=== PATIENT | female | born 1960 | race Caucasian/White ===

== ENCOUNTER → 2021-08-08 | Outpatient (CLI) | payer OTHER ==
--- NOTE | 2021-08-08 08:19 | US ---
EXAMINATION TYPE: US abdomen complete DATE OF EXAM: 08/08/2021 COMPARISON: NONE CLINICAL HISTORY: R10.84 Generalized abdominal pain,R92.8 Abn Mammogram. EXAM MEASUREMENTS: Liver Length: 12.8 cm Gallbladder Wall: 0.2 cm CBD: 0.2 cm Spleen: 8.8 cm Right Kidney: 13.2 x 3.3 x 4.5 cm Left Kidney: 13.0 x 4.1 x 4.2 cm Pancreas: Tail obscured by overlying bowel gas Liver: Increased attenuation, decreased visualization of vessels Gallbladder: wnl Evidence for sonographic Parmar's sign: no CBD: wnl Spleen: wnl Right Kidney: scattered echogenic foci ? stones, measures large Left Kidney: very poor visualization due to overlying bowel gas, inferior pole obscured , measures large Upper IVC: wnl Abd Aorta: wnl The liver is homogenous. The intrahepatic portion of the IVC and proximal abdominal aorta are within normal limits. There is no evidence of cholelithiasis. Common bile duct is unremarkable. The visu alized portions of the pancreas are homogenous. The spleen is unremarkable. Kidneys are symmetric a nd free of hydronephrosis. No renal lesions are seen. IMPRESSION: Nonobstructing nephrolithiasis.
--- NOTE | 2021-08-09 10:57 | USB ---
Reason for exam: additional evaluation requested from prior study. History: Patient is postmenopausal. Took hormonal contraceptives for 16 years beginning at age 24. Physical Findings: Nurse Summary: all soft, nodular, movable (nurse ts). US Breast RT Prior study comparison: June 18, 2021, mammogram, performed at [facility]. March 30, 2020, mammogram, performed at [facility]. Right complete breast ultrasound includes all four quadrants, the retroareolar region and axilla. Finding demonstrates no cystic or solid lesion seen. Entire right breast scanned. Recommend spot compression of the lateral asymmetric density on right CC view. These results were verbally communicated with the patient and result sheet given to the patient on 08/08/21. ASSESSMENT: Incomplete: need additional imaging evaluation, BI-RAD 0 RECOMMENDATION: Special view mammogram of the right breast. (3D) If lesion persists on supplemental views, image directed ultrasound is recommended. [facility] will attempt to contact patient to return for supplemental views and ultrasound if indicated.
== END | disposition home or self-care (01) ==
LOC: RADUSWWP 07:21
PROVIDERS: ATTEND Family Medicine
DX: N20.0 Calculus of kidney (principal); R92.8 Other abnormal and inconclusive findings on diagnostic imaging of breast; Z78.0 Asymptomatic menopausal state
CPT/HCPCS: 76700

== ENCOUNTER → 2022-03-19 | Outpatient (CLI) | payer OTHER ==
--- NOTE | 2022-03-19 13:34 | MM ---
Reason for Exam: Follow-up at short interval from prior study. Last screening mammogram was performed 9 month(s) ago. Patient History: Menarche at age 13. First Full-Term at age 23. Postmenopausal. Hormonal Contraceptives for 16 years from age 24 until age 40. Risk Values: Hannah 5 year model risk: 1.4%. NCI Lifetime model risk: 6.2%. Prior Study Comparison: 04/26/2013 Bilateral Screening Mammogram, [facility]. 01/25/2015 Bilateral Screening Mammogram, [facility]. 05/05/2016 Bilateral Screening Mammogram, [facility]. 06/11/2017 Bilateral Screening Mammogram, [facility]. 03/30/2020 Screening Mammogram, [facility]. 06/18/2021 Screening Mammogram, [facility]. 08/08/2021 Right Diagnostic Ultrasound, [facility]. 08/13/2021 Right Diagnostic Mammogram, [facility]. Tissue Density: Right: The breast tissue is heterogeneously dense. This may lower the sensitivity of mammography. Findings: Analyzed By CAD. No suspicious spiculated or lobular masses clustering of microcalcifications or architectural distortion is evident. Parenchymal pattern appears stable. Overall Assessment: Benign, BI-RAD 2 Management: Screening Mammogram of both breasts in 1 year. A clinical breast exam by your physician is recommended on an annual basis and results should be correlated with mammographic findings. This exam should not preclude additional follow-up of suspicious palpable abnormalities. Results were given to the patient verbally at the time of exam. Electronically signed and approved by: Nash Braun D.O. Radiologis
== END | disposition home or self-care (01) ==
LOC: RADMAMWWP 12:44
PROVIDERS: ATTEND Family Medicine
DX: R92.8 Other abnormal and inconclusive findings on diagnostic imaging of breast (principal); Z78.0 Asymptomatic menopausal state
CPT/HCPCS: 77061; 77065

== ENCOUNTER → 2023-04-22 | Outpatient (CLI) | payer OTHER ==
--- NOTE | 2023-04-22 22:41 | MR ---
EXAMINATION TYPE: MR lumbar spine wo con DATE OF EXAM: 04/22/2023 COMPARISON: 10/18/2015 HISTORY: Lower back pain, LLE radiculopathy x 2 mos, no trauma. CONTRAST: 0 mL intravenous Gadavist. TECHNIQUE: Multiplanar, multisequence images of the lumbar spine were acquired. FINDINGS: Cord terminates at the L1 level. L5-S1: No significant disc bulge or disc herniation. No spinal canal stenosis. No foraminal stenosi s. L4-L5: No significant disc bulge or disc herniation. No spinal canal stenosis. Facet hypertrophy is present. Neural foramen are patent. L3-L4: Disc desiccation is present. No focal disc herniation is evident. Mild facet hypertrophy is pr esent with mild posterior lateral thecal sac impression from ligamentum flavum laxity. Neural foramen are patent. L2-L3: Broad-based disc bulge is present with mild anterior thecal sac compression. No AP spinal citlali l stenosis present. Facet hypertrophy is present greater on the left. Neural foramen are patent. L1-L2: Broad-based disc bulges anterior thecal sac flattening. Mild facet hypertrophy is present. No spinal canal stenosis or neural foraminal stenosis is present. T12-L1: No significant disc bulge or disc herniation. No spinal canal stenosis. No foraminal stenos is. No significant interval change is evident. IMPRESSION: 1.
== END | disposition home or self-care (01) ==
LOC: RADMRIMAIN 11:07
PROVIDERS: ATTEND Student in an Organized Health Care Education/Training Program
DX: M51.16 Intervertebral disc disorders with radiculopathy, lumbar region (principal)
CPT/HCPCS: 72148

== ENCOUNTER 2023-05-15 08:44 | Day surgery (SDC) | payer OTHER ==
[~2023-05-15 08:44] MED LIST: LACTATED RINGERS 1,000 ML IV SCH; LIDOCAINE 1% (10MG/ML) FOR IV START INTRADERMA PRN
[2023-05-15 09:31] VITALS: TEMP 97.9
[2023-05-15] MEDS ORDERED: PROPOFOL 10 MG/ML 20 ML VIAL IV ONE (10:09)
[2023-05-15] MEDS ORDERED: LIDOCAINE 1% INJ 10MG/ML (20 ML MDV) ONE (10:09)
--- NOTE | 2023-05-15 10:29 | P.PCN ---
Date of Procedure: 05/15/23 Procedure(s) Performed: BRIEF HISTORY: Patient is a 63-year-old pleasant white female scheduled for an elective colonoscopy as a part of screening for colon cancer. PROCEDURE PERFORMED: Colonoscopy. PREOPERATIVE DIAGNOSIS: Screening for colon cancer. IV sedation per Anesthesia. PROCEDURE: After informed consent was obtained, the patient, was brought into the endoscopy unit. IV sedation was administered by Anesthesia under continuous monitoring. Digital rectal examination was normal. Initially the Olympus CF-160 flexible video colonoscope was then inserted in the rectum, gradually advanced into the cecum without any difficulty. Careful examination was performed as the scope was gradually being withdrawn. Ileocecal valve and the appendiceal orifice were visualized and appeared normal. Prep was excellent. Mucosa of the cecum, ascending colon, transverse colon, descending colon, sigmoid colon, and rectum appeared normal. Retroflexion was performed in the rectum and small internal hemorrhoids were seen. The patient tolerated the procedure well. IMPRESSION: Normal-appearing colon from rectum to cecum with no evidence of colorectal neoplasia . Small internal hemorrhoids. RECOMMENDATIONS: Findings of this examination were discussed with the patient as well as her family. She was advised to be a high-fiber diet, take fiber supplements a regular basis and use osmotic laxatives as needed. Recommend repeat screening colonoscopy in 10 years..
[2023-05-15 11:11] VITALS: BP 130/63; PULSE 83; RESP 16
== END 2023-05-15 11:06 | disposition home or self-care (01) ==
LOC: ORWHC2ENDO 08:44
PROVIDERS: ATTEND Internal Medicine Gastroenterology
DX: Z12.11 Encounter for screening for malignant neoplasm of colon (principal); K64.8 Other hemorrhoids; Z88.6 Allergy status to analgesic agent; Z88.8 Allergy status to other drugs, medicaments and biological substances; Z88.0 Allergy status to penicillin; Z79.899 Other long term (current) drug therapy
CPT/HCPCS: 45378; J2001; J2704

== ENCOUNTER → 2023-05-19 | Outpatient (CLI) | payer OTHER ==
--- NOTE | 2023-05-19 12:27 | US ---
EXAMINATION TYPE: US abdomen limited DATE OF EXAM: 05/19/2023 COMPARISON: NONE CLINICAL INDICATION: Female, 63 years old with history of M25.552, R10.9 UNSPECIFIED ABDOMINAL PAIN; Left hip/flank palpable that has increased in size per patient. TECHNIQUE: Multiple sonographic images taken of patients area of concern. FINDINGS/IMPRESSION: At patients area of concern, prominent nonvascular area seen = 5.1 x 5.4 x 2.3 cm. This blends in with the surrounding tissue. Demonstrates ill-defined margins. No fluid collecti on identified. This may represent a lipoma versus other etiologies. Consider further evaluation with CT left hip with IV contrast.
== END | disposition home or self-care (01) ==
LOC: RADUSWWP 11:38
PROVIDERS: ATTEND Student in an Organized Health Care Education/Training Program
DX: M25.552 Pain in left hip (principal); R10.9 Unspecified abdominal pain
CPT/HCPCS: 76705

== ENCOUNTER → 2023-05-27 | Outpatient (CLI) | payer OTHER ==
--- NOTE | 2023-05-30 21:40 | MR ---
EXAMINATION TYPE: MR pelvis wo con DATE OF EXAM: 05/27/2023 10:10 AM CLINICAL INDICATION:Female, 63 years old with history of M16.12 UNILATERAL PRIM OSTEOARTHRITIS, LEFT HIP M25.552; PHH, Pelvic and left hip pain. COMPARISON: None TECHNIQUE: Triplane multisequence imaging was performed of the pelvis. IV Contrast: None FINDINGS: Reproductive: Vagina: Unremarkable. Uterus: The uterus is anteverted in position. The endometrium and junctional zone are within normal l imits. Possible submucosal fibroid measuring 8 mm. Ovaries: The ovaries are not definitively visualized may be atrophic or surgically absent. Bladder: Unremarkable. Bowel: Unremarkable as visualized. Peritoneum: A small amount of free fluid in the pelvis. Lymph nodes: No evidence of adenopathy. Vasculature: Unremarkable. Musculoskeletal: There is high T2 signal within the proximal left femur including the left femoral he ad. There is curvilinear low signal line extending through the subchondral portion of the femoral hea d. There is a small moderate left hip effusion. The acetabulum appears intact. There is somewhat rodolfo apsed femoral head. Abdominal wall/soft tissues: Unremarkable. IMPRESSION: 1. Findings compatible with subacute subchondral fracture of the superior aspect of the left femoral head with subchondral collapse. There is associated left femur bony edema and left small moderate anneliese int effusion. 2. Possible submucosal fibroid measuring 8 mm.
== END | disposition home or self-care (01) ==
LOC: RADMRIMAIN 09:02
PROVIDERS: ATTEND Orthopaedic Surgery
DX: M16.12 Unilateral primary osteoarthritis, left hip (principal); M25.452 Effusion, left hip
CPT/HCPCS: 72195

== ENCOUNTER → 2023-06-02 | Outpatient (CLI) | payer OTHER ==
--- NOTE | 2023-06-02 10:01 | CT ---
EXAMINATION TYPE: CT hip LT w con CT DLP: 439 mGycm, Automated exposure control for dose reduction was used. DATE OF EXAM: 06/02/2023 9:42 AM COMPARISON: MRI pelvis 05/27/2023 CLINICAL INDICATION:Female, 63 years old with history of left hip mass M25.852; MERGED WITH [facility], TECHNIQUE: Axial images were obtained of the CT hip LT w con, Additional coronal and sagittal reforma tted images and soft tissue and bone window were obtained for review. 3-D reconstruction was created on a separate workstation. Contrast used: 100 cc Isovue-300. (None if empty) Oral contrast used: (None if empty) FINDINGS: Subchondral fracture of the left femoral head similar to MRI 05/27/2023 with step-off of th e femoral head of 1 to 2 mm. There is some surrounding sclerosis at the fracture margins. No evidence for dislocation. There is a small to moderate joint effusion. IMPRESSION: There is subchondral fracture of the left femoral head with deformity to the contour of the femoral h ead small step-off. Findings similar to MRI findings from 05/27/2023. Associated small to moderate anneliese int effusion.
== END | disposition home or self-care (01) ==
LOC: RADCTMAIN 09:03
PROVIDERS: ATTEND Student in an Organized Health Care Education/Training Program
DX: S72.051A Unspecified fracture of head of right femur, initial encounter for closed fracture (principal); M25.852 Other specified joint disorders, left hip; M25.452 Effusion, left hip
CPT/HCPCS: 73701; Q9967

== ENCOUNTER → 2023-06-10 | Outpatient (CLI) | payer OTHER ==
[2023-06-10 10:34] LABS: INR 0.9 (<1.2); Partial Thromboplastin Time 24.9 sec (22.0-30.0); Prothrombin Time 10.2 sec (10.0-12.5)
[2023-06-10 16:19] LABS: ALT 12 U/L (8-44); AST 14 U/L (13-35); Albumin 4.6 d/dL (3.8-4.9); Albumin/Globulin Ratio 1.92 Ratio (1.60-3.17); Alkaline Phosphatase 91 U/L (41-126); Appearance,Urine Clear (Clear); BUN/Creat Ratio 17.12 Ratio (12.00-20.00); Bilirubin,Urine Negative (Negative); Blood Urea Nitrogen 13.7 mg/dL (9.0-27.0); Blood,Urine Negative (Negative); Calcium 10.6 mg/dL (8.7-10.3); Carbon Dioxide 26.5 mmol/L (21.6-31.8); Chloride 98 mmol/L (96-109); Color,Urine Yellow (Yellow); Globulin 2.4 d/dL (1.6-3.3); Glucose 104 mg/dL (70-110); Ketones,Urine Negative (Negative); Nitrite,Urine Negative (Negative); Sodium 138 mmol/L (135-145); Specific Gravity,Urine 1.005 (1.001-1.030); Total Bilirubin 1.6 mg/dL (0.3-1.2); Urobilinogen,Urine 0.2 E.U./DL
[2023-06-10 16:21] LABS: HGB 13.7 d/dL (12.0-15.0); MCH 28.2 pg (27.0-32.0); MCHC 32.6 d/dL (32.0-37.0); MCV 86.6 FL (80.0-97.0); Mean Platelet Volume 11.6 FL (9.5-12.2); NRBC Per 100 WBC 0 X 10*3/uL (0.00-0.01); Platelet Count 264 X 10*3/uL (140-440); RBC 4.85 X 10*6/uL (4.10-5.20); RDW 12.7 % (11.5-14.5); WBC 7.29 X 10*3/uL (4.50-10.00)
== END | disposition home or self-care (01) ==
LOC: LABPAT 09:44
PROVIDERS: ATTEND Orthopaedic Surgery
DX: Z01.818 Encounter for other preprocedural examination (principal); M16.12 Unilateral primary osteoarthritis, left hip; S72.092D Other fracture of head and neck of left femur, subsequent encounter for closed fracture with routine healing
CPT/HCPCS: 80053; 81003; 85027; 85610; 85730; 86850; 86900; 86901; 87070

== ENCOUNTER 2023-06-17 07:57 | Day surgery (SDC) | payer OTHER ==
[2023-06-12 09:06] VITALS: BMI 29.2
[~2023-06-17 07:57] MED LIST changes: +ACETAMINOPHEN TAB 500 MG TAB PO PRN; +DEXAMETHASONE SOD PHOSPHATE 10 MG/ML 1 ML VIAL IV PRN; +DOCUSATE 100 MG CAP PO PRN; +FAMOTIDINE 20 MG/2 ML VIAL IVP PRN; +KETOROLAC 15 MG/ML 1 ML VIAL IVP PRN; -LACTATED RINGERS 1,000 ML IV SCH; +ONDANSETRON 4 MG/2 ML VIAL IVP ONE; +ONDANSETRON 4 MG/2 ML VIAL IVP PRN; +ROPIVACAINE/EPI/CLONIDINE/KET 50 ML SYRINGE MISCELLANE PRN; +TRANEXAMIC 1,000 MG/100ML-NACL 1,000 MG in SALINE 1 100ML.BAG IV PRN; +TRANEXAMIC 1,000 MG/100ML-NACL 1,000 MG in SALINE 1 100ML.BAG IVPB PRN; +droPERidol 5 MG/2 ML VIAL IVP ONE; +oxyCODONE ER 10 MG TAB.ER.12H PO PRN
[2023-06-17] MEDS: LACTATED RINGERS 1,000 ML IV SCH (08:22)
[2023-06-17] MEDS ORDERED: MIDAZOLAM 2 MG/2 ML VIAL IVP ONE (09:18)
[2023-06-17] MEDS ORDERED: PHENYLEPHRINE 10 MG/ML 5 ML VIAL ONE (09:30)
[2023-06-17] MEDS ORDERED: TRANEXAMIC 1,000 MG/100ML-NACL PREMIX BAG ONE (09:30)
[2023-06-17] MEDS ORDERED: NEOSTIGMINE 1 MG/ML 10 ML VIAL ONE (09:30)
[2023-06-17] MEDS ORDERED: fentaNYL (PF) 50 MCG/ML 2 ML AMP ONE (09:30)
[2023-06-17] MEDS ORDERED: PROPOFOL 10 MG/ML 20 ML VIAL IV ONE (09:30)
[2023-06-17] MEDS ORDERED: SUCCINYLCHOLINE CHLORIDE 200 MG/10 ML VIAL IV ONE (09:30)
[2023-06-17] MEDS ORDERED: ROPIVACAINE 5 MG/ML 30 ML VIAL ONE (09:30)
[2023-06-17] MEDS ORDERED: ROCURONIUM 10 MG/ML (5 ML VIAL) IV ONE (09:30)
[2023-06-17] MEDS ORDERED: GLYCOPYRROLATE 0.2 MG/ML 2 ML VIAL ONE (09:30)
[2023-06-17] MEDS ORDERED: DEXAMETHASONE SOD PHOSPHATE 4 MG/ML 1 ML VIAL ONE (09:30)
[2023-06-17] MEDS ORDERED: LACTATED RINGERS 1,000 ML IV ONE ×2 (10:15)
--- NOTE | 2023-06-17 11:46 | FL ---
EXAMINATION TYPE: FL guidance operating room, XR Hip Limited LT DATE OF EXAM: 06/17/2023 Comparison: None Clinical History: 63-year-old female Left Hip-Ant Findings: total ant hip in or left fl time 46 secs. DAP 2.0781 mGycm2 Total images 7 IMPRESSION: Intraoperative fluoroscopy as above.
[2023-06-17] MEDS ORDERED: NALOXONE 0.4 MG/ML 1 ML VIAL IV PRN (11:59)
[2023-06-17] MEDS ORDERED: HYDROcodone/APAP 5-325MG 1 EACH TAB PO PRN (11:59)
[2023-06-17] MEDS ORDERED: diazePAM 5 MG TAB PO PRN (11:59)
[2023-06-17] MEDS ORDERED: HYDROmorphone 1 MG/ML 1 ML SYRINGE IVP PRN (11:59)
[2023-06-17] MEDS ORDERED: MAGNESIUM HYDROXIDE 2,400 MG/30 ML CUP PO PRN (11:59)
[2023-06-17] MEDS ORDERED: hydrOXYzine pamoate 25 MG CAP PO PRN (11:59)
--- NOTE | 2023-06-17 11:59 | P.OP ---
Date of Procedure: 06/17/23 Preoperative Diagnosis: Left subchondral femoral head fracture with collapse versus avascular necrosis Postoperative Diagnosis: Same Procedure(s) Performed: Left direct anterior total hip arthroplasty Implants: 1. Emigdio Trident II Acetabular Cup, Size #48 2. Leona Insignia Size # 4 Femoral Stem, StandardOffset 3.Dual Mobility OD 38 mm, ID [id number], +0 mm, neck Anesthesia: GETA, regional Surgeon: Bhavik Pro Estimated Blood Loss (ml): 300 IV fluids (ml): 1,000 Pathology: none sent Condition: stable Disposition: PACU Indications for Procedure: The patient is a very pleasant previously healthy 63-year-old female that has had left hip pain which he attributes to twisting her hip this summer while gardening. She was worked up extensively both by myself and a spine physician. Workup included x-rays, computed tomography scan, and an MRI. Her imaging showed a subchondral fracture and collapse of the left femoral head. She had ongoing pain and difficulty ambulating and my recommendation was to proceed with a total hip replacement given her age and severity of the subchondral fracture and collapse. I had a long discussion with the patient in the office on the potential risks and complications of an elective total hip replacement through a direct anterior approach. Risks discussed include, but are certainly not limited to, risks from anesthesia, superficial infection requiring local wound care or antibiotics, deep juani-prosthetic joint infection and the treatment required to eradicate infection, intraoperative fracture, postoperative periprosthetic fracture, damage to local blood vessels or nerves particularly the lateral femoral cutaneous nerve, delayed wound healing requiring local wound care or possibly surgical debridement, hip dislocation, leg length discrepancy, soft tissue irritation around the total hip implant such as iliopsoas tendinitis or trochanteric bursitis, wear and osteolysis from the implants, squeaking or audible noises, groin pain, thigh pain, heterotopic ossification, stiffness, aseptic loosening of the implants, dissatisfaction with surgical outcome, need for revision surgery, DVT, PE, swelling of the operative extremity, acute coronary event, stroke, failure to thrive, and possibly loss of life or limb. The patient understands that while these are the most common complications after an elective hip replacement there are certainly other less common complications possible. They were given ample time to ask questions regarding the potential complications of a hip replacement. Following our discussion the patient provided their verbal and written consent to go forward with an elective total hip replacement. Operative Findings: There is a subchondral femoral head fracture involving the superior weightbearing portion the femoral head with complete delamination and separation of 25% of the articular cartilage on the weightbearing surface. There was also a large clear effusion. Description of Procedure: The patient was identified in the preoperative holding area and the correct hip was marked with my initials. I reviewed the procedure and consent with the patient. All of their questions were answered. The patient was then brought back into the operating room by anesthesia. While on the [facility] anesthesia was administered by the anesthesia team. Preoperative antibiotics and tranexamic acid were also given. After the patient was under anesthesia I examined their ankles to determine their preoperative leg length discrepancy. The skin over the anterior aspect of the hip was shaved to remove hair over the site of planned incision. Both feet and ankles were padded with webril and boots for the Holcomb were applied. The patient was then carefully transferred onto the Holcomb table. A perineal post was immediately placed. The arms were placed on arm holders and were well-padded. Both boots were secured to the spars on the Holcomb table. The patient was positioned so that the pelvis was centered over the post. Nonsterile drapes were applied. A timeout was performed identifying the correct patient, operative extremity, and procedure. At this point fluoroscopy was brought in to take preoperative images of the pelvis and operative hip. Using the standing AP pelvis from the office as a template, a comparable image was obtained with fluoroscopy. A metallic bar was used to create a bi-ischial line for use as a reference to leg length adjustments during the procedure. Global offset was also measured on both the operative and nonoperative leg. Fluoroscopy was then brought out and a pre-scrub using a chlorhexidine scrub brush was performed. The operative limb was then prepped and draped in the standard sterile fashion. An anterior longitudinal incision was made lateral and distal to the ASIS. The skin and subcutaneous tissues were incised sharply. The underlying tensor fascia was identified and incised in its midportion. The fascia was dissected free from the underlying muscle and the muscle belly was retracted. A blunt tipped cobra retractor was placed over the superior neck under the muscle fibers of the gluteus minimus. The deep enveloping fascia of the tensor was incised. The anterior leash of vessels were then identified and cauterized. The fascia between the rectus and the capsule was then incised and the pre-capsular fat was excised. A second Cobra was placed inferior to the neck. The interval between the rectus and iliocapsularis and the hip capsule was developed and a retractor was placed carefully over the anterior rim of the acetabulum. A T-shaped anterior capsulotomy was performed. The superior capsular leaflet was left in place in the inferior capsular flap was excised. The Cobra retractors were placed intracapsularly. We then made a femoral neck osteotomy according to preoperative and intraoperative templating and confirmed the level of the osteotomy using fluoroscopic imaging. The femoral head was removed, passed off to the back table, and sized. The superior capsular flap was excised. Retractors were placed circumferentially exposing the acetabulum. We then circumferentially debrided the acetabulum free of labrum and osteophytes. The pulvinar was removed to fully visualize the cotyloid fossa. We then sequentially reamed to achieve peripheral fit and excellent bleeding subchondral bone. The socket was thoroughly irrigated. The acetabular component was impacted into the appropriate position using fluoroscopy to guide version, inclination, and depth of insertion taking care to have a comparable image of the AP pelvis to the standing image taken in the office. An excellent press-fit was achieved and final position was confirmed using fluoroscopy. The press fit was augmented with bony cancellus dome screws. The liner was then impacted into the socket. Attention was then turned to the femur. The remnant dorsal lateral capsule was excised. The short external rotators were visible and protected. A bone hook was used to confirm appropriate translation of the trochanter away from the acetabulum. The leg was then extended and adducted and the bone hook was used to elevate the femur for broaching. A box osteotome and blunt tipped canal sound was then utilized to gain access to the femoral canal. We then sequentially broached the femur in appropriate anteversion until excellent torsional stability was achieved. The neck cut was brought flush to the trial broach with a calcar planar. A trial neck and head were then placed onto the broach and the hip was atraumatically reduced under direct visualization. External rotation to 90 was performed to assess stability. Fluoroscopy was brought in. An AP and lateral fluoroscopic image of the proximal femur was obtained to assess position and fill of the trial broach. An AP of the pelvis was then obtained and matched to the preoperative image taken. A bi-ischial bar was then placed and measurements were taken to assess changes in length and offset. The hip was then carefully dislocated, the proximal femur was exposed, and the trial implants were removed. The wound and proximal femur was thoroughly irrigated using sterile saline and pulsatile lavage. The final femoral implant was dispensed and gently tapped into place generating an excellent press-fit. The trunnion was cleansed and the final head was tapped into place to engage the Quarles taper. The acetabulum was irrigated and visualized to be free of debris. The hip was carefully reduced. Stability was checked clinically with external rotation to 90 and there was no evidence of instability. Final fluoroscopic images were taken. The wound was then thoroughly irrigated and soaked with a dilute Betadine rinse for 3 minutes. 3 L of sterile saline was irrigated through the wound using pulsatile lavage. Local anesthetic cocktail was injected into the soft tissues around the surgical field. A deep drain was placed. The wound was then closed in layers. A sterile dressing was placed over the surgical incision and drain site. The drapes were taken down and the patient was carefully transferred off of the Holcomb table. Following removal of the boots the leg lengths felt acceptable. The patient was then taken to recovery room having tolerated the procedure well. . PLAN: The patient can weight-bear as tolerated on the operative extremity. 2 doses of postoperative antibiotics. DVT prophylaxis with aspirin 81 mg twice a day based on preoperative risk stratification. Physical therapy for gait training. Discontinue drain postoperative day #1 if output is less than 100 mL per shift.
[2023-06-17] MEDS: HYDROmorphone 0.5 MG/0.5 ML SYRINGE IVP PRN ×2 (12:10→12:28)
[2023-06-17] MEDS: SODIUM CHLORIDE 0.9% 1,000 ML IV SCH ×2 (16:14→23:57)
--- NOTE | 2023-06-17 19:24 | P.CONS ---
History of Present Illness - Reason for Consult Consult date: 06/17/23 Medical Management Requesting physician: Bhavik Pro - History of Present Illness History of Presenting Illness: Patient is a very pleasant 63-year-old female with a past medical history of osteoarthritis, anxiety, and depression. She is currently admitted under orthopedic surgery team and is status post a left total hip arthroplasty secondary to avascular necrosis with collapse of her femoral head. Surgical procedure was completed by Dr. Pro earlier today. Review of systems: Pertinent positives and negatives as discussed in HPI, a complete review of sys tems was performed and all other systems are negative. Physical exam: Vital signs reviewed and stable. General: Nontoxic, no distress and appears stated age. Derm: Skin warm and dry, normal coloration for ethnicity. Head: Atraumatic, normocephalic and symmetric. Eyes: EOMs intact, no lid lag, and anicteric sclera Mouth: no lip lesions, mucus membranes moist Cardiovascular: regular rate and rhythm with normal S1S2, no murmur, positive posterior tibial pulses bilaterally, and cap refill < 2 seconds. Lungs: Respirations even, regular, and unlabored on room air. Lungs CTA bilaterally, no rhonchi, no rales, no wheezing, and no accessory muscle usage. Abdominal: soft, nontender to palpation, no guarding, no appreciable organomegaly Ext: ROM intact. No gross muscle atrophy, no edema, no contractures Neuro: Speech clear, face symmetrical and CN II-XII grossly intact with no noted focal neuro deficits Psych: Alert and oriented to person, place, time, and situation. Appropriate and pleasant affect. Assessment and Plan of Care: Postoperative hypoxia -Likely secondary to anesthesia. Patient's SpO2 90% on room air. -Order placed for administration of oxygenation to be titrated to maintain SpO2 equal to or greater than 92%. -Order placed on incentive spirometry and encourage use 10-15 times hourly while awake. Avascular necrosis with collapse of femoral head Status post left total hip arthroplasty -Management per primary admitting orthopedic surgery team including DVT prophylaxis, wound/dressing/drain management, weightbearing, PT/OT and pain management. -DVT prophylaxis currently with aspirin 81 mg twice daily. Anxiety and depression Order placed for hydroxyzine 25 mg every 4 hours as needed for anxiety Data reviewed: Vital signs reviewed. Blood pressure 106/85, heart rate 83, respiratory rate 17, temp 97.7F, and SpO2 of 90% on room air. Thank you for allowing us to participate in the care of this pleasant patient. Do not hesitate to contact us with questions. Someone can be reached from the [facility] hospitalist group all hours of the day at [phone] or via [employer]. Patient was seen independently by Nurse Practitioner. This document was prepared using DocVue dictation software. Please allow for errors in rooming house operator while rare they do occur. Past Medical History Past Medical History: Osteoarthritis (OA) Additional Past Medical History / Comment(s): constipation-high fiber diet, pain left hip History of Any Multi-Drug Resistant Organisms: None Reported Past Surgical History: Orthopedic Surgery, Tubal Ligation Additional Past Surgical History / Comment(s): Right foot surgery., left torn meniscus repair., colonoscopy Past Anesthesia/Blood Transfusion Reactions: No Reported Reaction Past Psychological History: Anxiety, Bipolar, Depression Additional Psychological History / Comment(s): pt states no problems now Smoking Status: Former smoker Past Alcohol Use History: None Reported Additional Past Alcohol Use History / Comment(s): quit smoking in her 20's., smoked 2 packs/week Past Drug Use History: None Reported - Past Family History Father Family Medical History: Coronary Artery Disease (CAD) Additional Family Medical History / Comment(s): pacemaker, Mother Family Medical History: Hypertension, Osteoarthritis (OA) Additional Family Medical History / Comment(s): Brother(s) Family Medical History: Cancer Additional Family Medical History / Comment(s): prostate cancer. Sister(s) Family Medical History: No Reported History Additional Family Medical History / Comment(s): . Son(s) Family Medical History: No Reported History Additional Family Medical History / Comment(s): She has a 30-year-old son and a 19-year-old son with no major medical problems. Daughter(s) Family Medical History: No Reported History Additional Family Medical History / Comment(s): She has one 17-year-old daughter with no major medical problems. Medications and Allergies Home Medications Medication Instructions Recorded Confirmed Type No Known Home Medications 06/12/23 06/17/23 History Allergies Allergy/AdvReac Type Severity Reaction Status Date / Time aspirin Allergy Rash/Hives Verified 06/17/23 08:22 corn Allergy congestion Verified 06/17/23 08:22 latex Allergy Dyspnea, Verified 06/17/23 08:22 itching Milk Containing Products Allergy congestion Verified 06/17/23 08:22 (Dairy) [Dairy] Penicillins Allergy Rash/Hives Verified 06/17/23 08:22 propoxyphene napsylate Allergy Rash/Hives Verified 06/17/23 08:22 [From Darvocet-N] risperidone Allergy Unknown Verified 06/17/23 08:22 Sulfa (Sulfonamide Allergy Unknown Verified 06/17/23 08:22 Antibiotics) docusate AdvReac Unknown abd pain Verified 06/17/23 08:22 Physical Exam Vitals: Vital Signs Temp Pulse Pulse Resp BP Pulse Ox 06/17/23 13:15 77 16 107/57 97 06/17/23 13:00 78 16 105/50 100 06/17/23 12:45 79 16 100/51 100 06/17/23 12:30 77 16 105/53 100 06/17/23 12:15 76 16 109/56 100 06/17/23 12:02 83 16 120/59 96 06/17/23 11:44 97 F L 105 H 16 139/55 96 06/17/23 09:27 76 18 104/58 98 06/17/23 08:30 98.3 F 84 18 112/68 98 Intake and Output 06/16/23 06/17/23 06/17/23 22:59 06:59 14:59 Intake Total 1250 Output Total 300 Balance 950 Intake: IV 1250 Output: Estimated Blood Loss 300 Other: Weight 75.1 kg
[2023-06-17] MEDS: HYDROcodone/APAP 10-325MG 1 EACH TAB PO PRN (19:47)
[2023-06-17] MEDS: ASPIRIN 81 MG PO SCH (20:43)
[2023-06-17] MEDS ORDERED: SENNOSIDES-DOCUSATE SODIUM 1 EACH TAB PO SCH (21:00)
[2023-06-18] MEDS: HYDROcodone/APAP 10-325MG 1 EACH TAB PO PRN ×3 (01:05→12:50)
[2023-06-18 03:18] VITALS: PULSE 66; RESP 17
[2023-06-18] MEDS: LACTATED RINGERS 1,000 ML IV SCH (05:58)
[2023-06-18 07:32] VITALS: BP 107/76; TEMP 97.8
[2023-06-18] MEDS: SODIUM CHLORIDE 0.9% 1,000 ML IV SCH (07:41)
[2023-06-18] MEDS: ASPIRIN 81 MG PO SCH (07:44)
--- NOTE | 2023-06-18 08:10 | P.DS ---
Providers Date of admission: 06/17/2023 Attending physician: Bhavik Pro Consults: 06/17/23 11:59 Consult Physician Routine Consulting Provider: Klarissa Dixon Consult Reason/Comments: post op medical management Do you want consulting provider notified?: Yes Primary care physician: Stephani Horne MD Hospital Course: The patient is very pleasant 63-year-old female who had a subchondral femoral head fracture. She was admitted under my care and underwent an uncomplicated total hip replacement. Lungs surgery she was transferred to the surgical floor. She did well postoperatively. She was transitioned from IV to oral pain medications. She received 2 doses of postoperative antibiotics. She worked with physical therapy. She was seen and evaluated by internal medicine. She di d well and was cleared for discharge home on postoperative day #1. Plan - Discharge Summary Discharge Rx Participant: Yes New Discharge Prescriptions: New HYDROcodone/APAP 5-325MG [[place] 5-325] 1 - 2 tab PO Q6HR PRN #32 tab PRN Reason: Pain Docusate [Colace] 100 mg PO BID #60 capsule Diclofenac Sodium [Voltaren] 75 mg PO BID #60 tab Aspirin 81 mg PO BID #60 tab Omeprazole 40 mg PO DAILY #30 cap Discharge Medication List Aspirin 81 mg PO BID #60 tab 06/18/23 [Rx] Diclofenac Sodium [Voltaren] 75 mg PO BID #60 tab 06/18/23 [Rx] Docusate [Colace] 100 mg PO BID #60 capsule 06/18/23 [Rx] HYDROcodone/APAP 5-325MG [[place] 5-325] 1 - 2 tab PO Q6HR PRN #32 tab 06/18/23 [Rx] Omeprazole 40 mg PO DAILY #30 cap 06/18/23 [Rx] Follow up Appointment(s)/Referral(s): Bhavik Pro MD [Medical Doctor] - 2 Weeks Activity/Diet/Wound Care/Special Instructions: 1. Weight-bear as tolerated on your operative extremity unless instructed otherwise. Use a walker or other assistive device to ambulate. 2. Leave surgical dressing in place. If your dressing becomes saturated with blood, there is drainage, or the dressing becomes loose please contact the office. 3. It is okay to shower with your surgical dressing, but do not submerge in w ater (no hot tubs, bath's, swimming etc.) 4. Make sure to take her blood clot prevention medication as prescribed (aspirin, Eliquis, Xarelto, and Plavix are commonly prescribed medications for blood clot prevention) 5. While taking [place] or Percocet for pain make sure you're taking a stool softener (Colace) and drink lots of water. 6. Keep all follow-up appointments as scheduled. You will usually be seen in 1-2 weeks following surgery. 7. Please contact the office with any questions or concerns [phone] Discharge Disposition: HOME SELF-CARE
[2023-06-18] MEDS ORDERED: FAMOTIDINE 20 MG TAB PO SCH (09:00)
[2023-06-18 11:51] LABS: Basophils # (A) 0.02 X 10*3/uL (0.00-0.10); Basophils % (A) 0.2 %; Eosinophils # (A) 0.01 X 10*3/uL (0.04-0.35); Eosinophils % (A) 0.1 %; HCT 34.2 % (37.2-46.3); HGB 10.9 g/dL (12.0-15.0); Lymphocytes % (A) 11.8 %; MCH 28.1 pg (27.0-32.0); MCHC 31.9 g/dL (32.0-37.0); MCV 88.1 FL (80.0-97.0); Mean Platelet Volume 11.8 FL (9.5-12.2); Monocytes # (A) 0.73 X 10*3/uL (0.20-1.00); Monocytes % (A) 6.2 %; NRBC Per 100 WBC 0 X 10*3/uL (0.00-0.01); Neutrophils # (A) 9.65 X 10*3/uL (1.80-7.70); Neutrophils % (A) 81.3 %; Platelet Count 230 X 10*3/uL (140-440); RBC 3.88 X 10*6/uL (4.10-5.20); RDW 12.8 % (11.5-14.5); WBC 11.86 X 10*3/uL (4.50-10.00)
[2023-06-18 11:53] LABS: ALT 11 U/L (8-44); AST 16 U/L (13-35); Albumin 3.6 g/dL (3.8-4.9); Alkaline Phosphatase 65 U/L (41-126); Blood Urea Nitrogen 10.2 mg/dL (9.0-27.0); Calcium 9.6 mg/dL (8.7-10.3); Carbon Dioxide 26.5 mmol/L (21.6-31.8); Chloride 104 mmol/L (96-109); Globulin 1.8 g/dL (1.6-3.3); Glucose 99 mg/dL (70-110); Magnesium 1.9 mg/dL (1.5-2.4); Potassium 4.2 mmol/L (3.5-5.5); Sodium 140 mmol/L (135-145); Total Bilirubin 0.8 mg/dL (0.3-1.2); Total Protein 5.4 g/dL (6.2-8.2)
--- NOTE | 2023-06-18 14:55 | P.PN ---
Subjective Progress Note Date: 06/18/23 Hospital Course: Patient is a very pleasant 63-year-old female with a past medical history of osteoarthritis, anxiety, and depression. She is currently admitted under orthopedic surgery team and is status post a left total hip arthroplasty secondary to avascular necrosis with collapse of her femoral head. Surgical procedure was completed by Dr. Pro 06/17/23. We were consulted for medical management throughout patient's hospitalization. Physical exam: Patient seen and fully evaluated at bedside this morning. She is postoperative day one and appears to be doing well. Patient was sitting up in chair and reports she has been ambulatory with walker back and forth to restroom without any reported difficulties. Patient denies having any further questions, needs, or complaints at this time. Vital signs reviewed and stable. General: Nontoxic, no distress and appears stated age. Derm: Skin warm and dry, normal coloration for ethnicity. Head: Atraumatic, normocephalic and symmetric. Eyes: EOMs intact, no lid lag, and anicteric sclera Mouth: no lip lesions, mucus membranes moist Cardiovascular: regular rate and rhythm with normal S1S2, no murmur, positive posterior tibial pulses bilaterally, and cap refill < 2 seconds. Lungs: Respirations even, regular, and unlabored on room air. Lungs CTA bilaterally, no rhonchi, no rales, no wheezing, and no accessory muscle usage. Abdominal: soft, nontender to palpation, no guarding, no appreciable organomegaly Ext:. No gross muscle atrophy, no edema, no contractures movement and sensation intact postoperative dressing clean dry and intact to left lateral hip/thigh.. Neuro: Speech clear, face symmetrical and CN II-XII grossly intact with no noted focal neuro deficits Psych: Alert and oriented to person, place, time, and situation. Appropriate and pleasant affect. Assessment and Plan of Care: Acute postoperative blood loss anemia Postoperative leukocytosis Postoperative hypoxia, resolved -Postoperative labs reviewed. CBC showing acute blood loss anemia with hemoglobin of 10.9 with preoperative hemoglobin of 13.7 and mild postoperative leukocytosis with WBC count of 11.86 and preoperative WBC count of 7.29. -Postoperative blood loss anemia is a stable and expected finding. Hemoglobin is stable at 10.9, no signs of active bleeding, no need for blood transfusion or further intervention at this time. Repeat testing is not necessary unless patient develops signs/symptoms of bleeding. -Initial postoperative hypoxia was likely secondary to anesthesia and has now resolved. Patient's postoperative SpO2 was 90% on room air but after becoming more awake and using incentive spirometer, patient's SpO2 quickly increased to 95% on room air and is currently 100% on room air. -Patient educated on importance of incentive spirometry use and recommend continued use for 1-2 weeks post discharge. Avascular necrosis with collapse of femoral head Status post left total hip arthroplasty -Management per primary admitting orthopedic surgery team including DVT prophylaxis, wound/dressing/drain management, weightbearing, PT/OT and pain management. -DVT prophylaxis currently with aspirin 81 mg twice daily. Anxiety and depression Patient may continue with hydroxyzine 25 mg every 4 hours as needed for anxiety Data reviewed: Vital signs reviewed. Blood pressure 107/76, heart rate 66, temp 97.8, re spiratory rate 17, and SpO2 of 100% on room air. Labs reviewed. CBC showing mild leukocytosis with WBC count of 11.86 and stable postoperative acute blood loss anemia with hemoglobin of 10.9. BMP and liver profile was unremarkable. Magnesium also normal findings at 1.9. Patient is medically optimized for discharge at this time with no further recommendations from medical standpoint. Patient may be discharged once cleared by primary admitting orthopedic surgery team. Thank you for allowing us to participate in the care of this pleasant patient. Do not hesitate to contact us with questions. Someone can be reached from the [facility] hospitalist group all hours of the day at [phone] or via perfect serve. Patient was seen independently by Nurse Practitioner. This document was prepared using [employer] dictation software. Please allow for errors in jockey valet while rare they do occur. Objective - Vital Signs Vital signs: Vital Signs Temp 97.8 F 06/18/23 07:04 Pulse 66 06/18/23 07:04 Resp 17 06/18/23 07:04 BP 107/76 06/18/23 07:04 Pulse Ox 100 06/18/23 07:04 FiO2 Intake & Output 06/17/23 06/18/23 06/18/23 18:59 06:59 18:59 Intake Total 1250 1200 Output Total 300 205 Balance 950 995 Weight 75.1 kg Intake: IV 1250 Intake, IV Titration 1200 Amount Sodium Chloride 0.9% 1, 1200 000 ml @ 100 mls/hr IV . Q10H [facility] Rx#:[id number] Output: Drainage 205 Left Hip 205 Estimated Blood Loss 300 Other: # Voids 1 3 1 - Labs CBC & Chem 7: 06/18/23 06:23 06/18/23 06:23
--- NOTE | 2023-06-19 12:01 | P.ANPRN ---
Procedure Note - Anesthesia - Nerve Block Performed Left Raj Single Time Out Performed: Yes Date of Procedure: 06/17/23 Procedure Start Time: : Procedure Stop Time: Location of Patient: PreOp Indication: Acute Post-Operative Pain, Requested by Surgeon Sedation Type: Sedate with meaningful contact maintained Preparation: Sterile Prep Position: Supine Needle Types: Pajunk Needle Gauge: 21 Ultrasound used to visualize needle placement: Yes Ultrasound used to observe medication spread: Yes Blood Aspirated: No Pain Paresthesia on Injection Noted: No Resistance on Injection: Normal Image Stored and Saved: Yes Events: Uneventful and Well Tolerated (Ropivacaine 0.5% 25 mL plus dexamethasone 4 mg)
== END 2023-06-18 14:12 | disposition home or self-care (01) ==
LOC: OR 07:57 → 4SSUR 11:36 → OR 06-18 14:12
PROVIDERS: ATTEND Orthopaedic Surgery
DX: M84.459A Pathological fracture, hip, unspecified, initial encounter for fracture (principal); E78.5 Hyperlipidemia, unspecified; Z88.6 Allergy status to analgesic agent; Z91.011 Allergy to milk products; Z91.048 Other nonmedicinal substance allergy status; Z91.040 Latex allergy status; Z88.0 Allergy status to penicillin; Z98.890 Other specified postprocedural states; Z79.899 Other long term (current) drug therapy
CPT/HCPCS: 97161; 97166; 64447; 80053; 83735; 85025; 73501; 27130; C1776; J2250; J1100; J0690 ×2; J2405; J3490; J1885; J1170

== ENCOUNTER → 2023-09-23 | Outpatient (CLI) | payer OTHER ==
--- NOTE | 2023-09-24 15:17 | MM ---
Reason for Exam: Screening (asymptomatic). Last screening mammogram was performed 12 month(s) ago. Patient History: Menarche at age 13. First Full-Term at age 23. Postmenopausal. Patient has history of breast feeding. Hormonal Contraceptives for 16 years from age 24 until age 40. Risk Values: Hannah 5 year model risk: 1.4%. NCI Lifetime model risk: 6.0%. Prior Study Comparison: 08/13/2021 Right Diagnostic Mammogram, [facility]. 03/19/2022 Right MG 3D diag mammo w/cad RT, [facility]. 09/22/2022 Bilateral MG 3D screening mammo w/cad, [facility]. Tissue Density: There are scattered fibroglandular densities. Findings: Analyzed By CAD. There is no suspicious group of microcalcifications or new suspicious mass. Overall Assessment: Negative, BI-RAD 1 Management: Screening Mammogram of both breasts in [address] [facility] will attempt to contact patient to return for supplemental views and ultrasound if indicated. Patient should continue monthly self-breast exams. A clinical breast exam by your physician is recommended on an annual basis. This exam should not preclude additional follow-up of suspicious palpable abnormalities. Note on Hannah scores and lifetime risk: 1. A Hannah score greater than 3% is considered moderate risk. If this is the case, consider specialist referral to assess eligibility for a risk reducing agent. 2. If overall lifetime risk for the development of breast cancer is 20% or higher, the patient may qualify for future screening with alternating mammogram and breast MRI. Electronically signed and approved by: Jamari Frankel DO
== END | disposition home or self-care (01) ==
LOC: RADMAMWWP 11:32
PROVIDERS: ATTEND Student in an Organized Health Care Education/Training Program
DX: Z12.31 Encounter for screening mammogram for malignant neoplasm of breast (principal); Z78.0 Asymptomatic menopausal state
CPT/HCPCS: 77067

== ENCOUNTER → 2023-12-07 | Outpatient (CLI) | payer OTHER ==
--- NOTE | 2023-12-07 20:12 | MR ---
EXAMINATION TYPE: MR brain and iac wo/w con DATE OF EXAM: 12/07/2023 2:17 PM CLINICAL INDICATION:Female, 63 years old with history of H90.A22 SNSRNRL HEAR LOSS, UNI, L EAR; PHH, Left sided hearing loss. COMPARISON: 05/11/2013 TECHNIQUE: Multi planar, multi sequence imaging was performed through the brain. Specialized thin s equences were obtained through the internal auditory canals. Pre-and post gadolinium sequences were obtained. MR contrast: IV Contrast: 7.5 cc Gadavist FINDINGS: The david-white junctions, ventricular system, and cisterns appear unremarkable. Scattered foci of h igh T2 signal intensity are seen within the periventricular white matter. Midline structures show no abnormality. Diffusion-weighted imaging shows no evidence of restricted diffusion. The susceptibility weighted images do not reveal any evidence for micro-hemorrhage. The bone marrow signal is within normal limits. Paranasal sinuses and mastoid air cells: Mild scattered paranasal sinus disease. Visualized orbits: Orbital contents are intact. After administration of gadolinium, no abnormal enhancement is seen. The internal auditory canal sequences demonstrate no significant irregularity. The 7th cranial nerve s, 8 cranial nerves, and cerebellar pontine angles appear unremarkable. After the administration sudha olinium, no abnormal enhancement is seen within the internal auditory canals. Vascular loop: None. IMPRESSION: 1. No evidence of intracranial mass nor acute/subacute CVA. 2. No evidence of internal auditory canal abnormality.
== END | disposition home or self-care (01) ==
LOC: RADMRIMAIN 12:49
PROVIDERS: ATTEND Otolaryngology
DX: H90.A22 Sensorineural hearing loss, unilateral, left ear, with restricted hearing on the contralateral side (principal)
CPT/HCPCS: 70553; A9585

== ENCOUNTER → 2023-12-07 | Outpatient (CLI) | payer OTHER ==
[2023-12-07 22:29] LABS: Basophils # (A) 0.03 X 10*3/uL (0.00-0.10); Basophils % (A) 0.4 %; Eosinophils # (A) 0.13 X 10*3/uL (0.04-0.35); Eosinophils % (A) 1.7 %; HCT 41.1 % (37.2-46.3); HGB 13.1 g/dL (12.0-15.0); Lymphocytes # (A) 2.63 X 10*3/uL (0.90-5.00); Lymphocytes % (A) 33.6 %; MCH 28.1 pg (27.0-32.0); MCHC 31.9 g/dL (32.0-37.0); MCV 88.2 FL (80.0-97.0); Mean Platelet Volume 11.7 FL (9.5-12.2); Monocytes % (A) 5.1 %; NRBC Per 100 WBC 0 X 10*3/uL (0.00-0.01); Neutrophils # (A) 4.61 X 10*3/uL (1.80-7.70); Neutrophils % (A) 58.8 %; Platelet Count 273 X 10*3/uL (140-440); RBC 4.66 X 10*6/uL (4.10-5.20); RDW 13.2 % (11.5-14.5); WBC 7.83 X 10*3/uL (4.50-10.00)
[2023-12-07 22:30] LABS: ALT 16 U/L (8-44); AST 17 U/L (13-35); Albumin 4.6 g/dL (3.8-4.9); Albumin/Globulin Ratio 2.09 Ratio (1.60-3.17); Alkaline Phosphatase 87 U/L (41-126); BUN/Creat Ratio 12.75 Ratio (12.00-20.00); Blood Urea Nitrogen 10.2 mg/dL (9.0-27.0); Carbon Dioxide 27.4 mmol/L (21.6-31.8); Chloride 102 mmol/L (96-109); Globulin 2.2 g/dL (1.6-3.3); Glucose 90 mg/dL (70-110); Potassium 4.4 mmol/L (3.5-5.5); Sodium 139 mmol/L (135-145); Total Bilirubin 0.9 mg/dL (0.3-1.2); Total Protein 6.8 g/dL (6.2-8.2)
== END | disposition home or self-care (01) ==
LOC: LABWHC1 12:35
PROVIDERS: ATTEND Internal Medicine Gastroenterology
DX: K76.9 Liver disease, unspecified (principal)
CPT/HCPCS: 36415; 80053; 85025

== ENCOUNTER → 2024-02-03 | Outpatient (CLI) | payer OTHER ==
--- NOTE | 2024-02-08 09:05 | CT ---
EXAMINATION TYPE: CT abdomen pelvis w con DATE OF EXAM: 02/03/2024 COMPARISON: NONE HISTORY: 64-year-old female K57.32 DVTRCLI OF LG INT W/O PERFORATION OR ABSCES, lt st mass TECHNIQUE: Contiguous axial scanning of the abdomen and pelvis following administration of 100 ml Iso jeannie 300 IV contrast. Delayed images through the kidneys and coronal/sagittal reconstructions perform ed. CT DLP: 1301 mGycm Automated exposure control for dose reduction was used. FINDINGS: Heart normal size without pericardial effusion. Lung bases clear without pleural effusion. There may be a tiny hiatal hernia. Tiny 7 mm hypodensity right hepatic dome too small for accurate CT characterization, probably a tiny cyst. Liver borderline in size at 17.8 cm. Portal venous system is patent. No biliary ductal dilatati on. Gallbladder, adrenal glands, spleen, pancreas within normal limits. Bilateral extra renal pelvis. The left kidney is malrotated. Retroaortic left renal vein. No dilated small bowel, free fluid, or free air. No mesenteric or retroperitoneal lymphadenopathy see n. Oral contrast progressed to the distal third transverse colon. There is mild to moderate stool burden . Left-sided colonic diverticulosis particularly in the proximal to mid sigmoid colon. Sigmoid colon mildly redundant. Bladder is urine distended. Uterus anteverted. Both ovaries are visualized. No abnormal fluid collect ion within the pelvis or pelvic lymphadenopathy. Right-sided pelvic phleboliths. Bones: Mild degenerative change right hip. Mild osteitis pubis. Left hip total arthroplasty noted. No osseous destructive process. IMPRESSION: 1. LEFT-SIDED COLONIC DIVERTICULOSIS, PARTICULARLY IN THE PROXIMAL TO MID SIGMOID COLON. 2. Uncomplicated appearance to the left total hip arthroplasty. No suspicious mass or abdominal wall hernia is identified.
== END | disposition home or self-care (01) ==
LOC: RADCTMAIN 13:56
PROVIDERS: ATTEND Surgery
DX: K57.30 Diverticulosis of large intestine without perforation or abscess without bleeding (principal); R22.42 Localized swelling, mass and lump, left lower limb
CPT/HCPCS: 74177; Q9967

== ENCOUNTER 2024-02-26 08:18 | Day surgery (SDC) | payer OTHER ==
--- NOTE | 2024-02-26 07:41 | P.HPADDEND ---
H&P Addendum H&P Addendum Date: 02/26/24 After patient's last office visit a CAT scan was performed. CAT scan reviewed and does show a subcutaneous lipomatous mass. No definite hernia noted. She and I spoke by phone. She requested to proceed with surgical resection. We'll proceed with excision left flank lipomatous mass. Risks of bleeding, infection, recurrence, possible findings of hernia, numbness, deformity reviewed. She understands wished to proceed.
[~2024-02-26 08:18] MED LIST changes: -ACETAMINOPHEN TAB 500 MG TAB PO PRN; -DEXAMETHASONE SOD PHOSPHATE 10 MG/ML 1 ML VIAL IV PRN; -DOCUSATE 100 MG CAP PO PRN; -FAMOTIDINE 20 MG/2 ML VIAL IVP PRN; +HYDROmorphone 0.5 MG/0.5 ML SYRINGE IVP PRN; -KETOROLAC 15 MG/ML 1 ML VIAL IVP PRN; +MIDAZOLAM 2 MG/2 ML VIAL IV PRN; -ONDANSETRON 4 MG/2 ML VIAL IVP ONE; -ONDANSETRON 4 MG/2 ML VIAL IVP PRN; -ROPIVACAINE/EPI/CLONIDINE/KET 50 ML SYRINGE MISCELLANE PRN; -TRANEXAMIC 1,000 MG/100ML-NACL 1,000 MG in SALINE 1 100ML.BAG IV PRN; -TRANEXAMIC 1,000 MG/100ML-NACL 1,000 MG in SALINE 1 100ML.BAG IVPB PRN; -droPERidol 5 MG/2 ML VIAL IVP ONE; -oxyCODONE ER 10 MG TAB.ER.12H PO PRN
[2024-02-26] MEDS: IV FLUID CONTINUATION 1,000 ML IV ONE (08:53)
[2024-02-26] MEDS: HEPARIN SODIUM,PORCINE 5,000 UNIT/ML 1 ML VIAL SQ PRN (09:00)
[2024-02-26] MEDS: DEXAMETHASONE SOD PHOSPHATE 4 MG/ML 1 ML VIAL IV ONE (09:00)
[2024-02-26] MEDS: ONDANSETRON 4 MG/2 ML VIAL IVP ONE (09:01)
[2024-02-26] MEDS: LACTATED RINGERS 1,000 ML IV SCH (09:01)
[2024-02-26] MEDS: FAMOTIDINE 20 MG/2 ML VIAL IV STA (09:01)
[2024-02-26] MEDS: ACETAMINOPHEN TAB 500 MG TAB PO PRN (09:02)
[2024-02-26] MEDS ORDERED: LIDOCAINE 1% INJ 10MG/ML (20 ML MDV) ONE (09:12)
[2024-02-26] MEDS ORDERED: MIDAZOLAM 2 MG/2 ML VIAL ONE (09:12)
[2024-02-26] MEDS ORDERED: KETOROLAC 15 MG/ML 1 ML VIAL ONE (09:12)
[2024-02-26] MEDS ORDERED: fentaNYL (PF) 50 MCG/ML 2 ML AMP ONE (09:12)
[2024-02-26] MEDS ORDERED: PROPOFOL 10 MG/ML 20 ML VIAL IV ONE (09:12)
[2024-02-26] MEDS: BUPIVACAINE (PF) 0.25% 30 ML VIAL SQ ONE (09:48)
[2024-02-26] MEDS ORDERED: HYDROcodone/APAP 5-325MG 1 EACH TAB PO PRN (09:57)
[2024-02-26] MEDS ORDERED: NALOXONE 0.4 MG/ML 1 ML VIAL IV PRN (09:57)
--- NOTE | 2024-02-26 10:01 | P.OP ---
Date of Procedure: 02/26/24 Procedure(s) Performed: PREOPERATIVE DIAGNOSIS: Left flank lipoma POSTOPERATIVE DIAGNOSIS: Left flank lipoma intramuscular PROCEDURE: Excision intramuscular left flank lipoma with intermediate closure SURGEON: Tai EBL: Yas Hoff ANESTHESIA: Gen. COMPLICATIONS: None OPERATIVE PROCEDURE:Patient placed in the right decubitus position after general anesthesia achieved. Left flank region prepped and draped sterilely. A horizontal incision made overlying the palpable mass. Dissection through the subcutaneous layer took place using electrocautery. A large lipomatous mass was then identified and followed to where it seemed to be coming from the External oblique muscular layer. This did not appear to be a hernia. This was fully excised using blunt dissection and cautery. This measured 6 x 4 cm. This was sent to pathology. Fascia was reapproximated using short running 2-0 Vicryl suture. Subcutaneous layers closed using 3-0 Vicryl sutures. Skin closed using 4-0 Monocryl sutures. Skin glue and sterile dressings applied. Length of intermediate closure 6 cm. DISPOSITION: Stable to recovery room
[2024-02-26 10:13] VITALS: TEMP 97.2
[2024-02-26] MEDS: fentaNYL (PF) 50 MCG/ML 2 ML AMP IVP PRN (10:38)
[2024-02-26 11:08] VITALS: RESP 16
[2024-02-26 11:39] VITALS: BP 118/65; PULSE 71
== END 2024-02-26 11:54 | disposition home or self-care (01) ==
LOC: OR 08:18
PROVIDERS: ATTEND Surgery
DX: M19.90 Unspecified osteoarthritis, unspecified site (principal); F32.A Depression, unspecified; F25.9 Schizoaffective disorder, unspecified; Z79.899 Other long term (current) drug therapy; Z91.040 Latex allergy status; Z88.6 Allergy status to analgesic agent; Z88.0 Allergy status to penicillin; Z88.5 Allergy status to narcotic agent; Z88.2 Allergy status to sulfonamides; Z91.018 Allergy to other foods
CPT/HCPCS: 88304; 21931; J2250; J1644; J1100; J0690; J2405; J2001; J3010; J3490; J1885; J2704; J0665

== ENCOUNTER → 2024-06-30 | Outpatient (CLI) | payer OTHER | END | disposition home or self-care (01) | LOC: LABWHC1 10:48 | PROVIDERS: ATTEND Orthopaedic Surgery | DX: S72.092D Other fracture of head and neck of left femur, subsequent encounter for closed fracture with routine healing (principal); Z96.642 Presence of left artificial hip joint; Z47.1 Aftercare following joint replacement surgery; T84.84XA Pain due to internal orthopedic prosthetic devices, implants and grafts, initial encounter; X58.XXXD Exposure to other specified factors, subsequent encounter | CPT/HCPCS: 36415; 85652; 86140 ==

== ENCOUNTER → 2024-09-08 | Outpatient (CLI) | payer OTHER ==
--- NOTE | 2024-09-08 16:06 | MR ---
INDICATION: Patient age:Female; 64 years old; Reason for study: M47.817 SPONDYLS W/O MYELOPATHY OR RADICULOPATHY; PHH. COMPARISONS: CT abdomen and pelvis 02/03/2024, MRI lumbar spine 04/22/2023, 10/18/2015. TECHNIQUE: Multi planar, multi sequence imaging was performed utilizing: T1-weighted, T2-weighted, a nd turbo inversion recovery imaging of the lumbar spine. The patient was not given contrast. FINDINGS: The lumbar vertebral bodies do have preserved heights and alignment. Stable sacral benign hemangioma. Minimal multilevel disc desiccation is present. The conus medullaris and the distal spin al cord do appear unremarkable with regards to their signal intensity and morphology. T12-L1: Disc appears unremarkable. No significant central canal or neural foraminal stenosis. L1-L2: Broad-based disc bulge and ligamentum flavum resulting in mild central canal stenosis. No sonam ral foraminal stenosis. L2-L3: Broad-based disc bulge and ligamentum flavum buckling resulting in mild to moderate central c anal stenosis. There is abutment of the traversing nerve roots. Bilateral facet arthropathy with mild bilateral neural foraminal stenosis. L3-L4: No significant disc pathology is identified. Ligamenta flavum buckling with bilateral facet a rthropathy. No neural foraminal stenosis. L4-L5: Flattening of the posterior disc without disc herniation. Ligament flavum buckling resulting i n minimal narrowing of the central canal. Bilateral facet arthropathy. Mild bilateral neural foramina l stenosis. L5-S1: The intervertebral disc appears round on its contour posteriorly without significant mass eff ect upon the thecal sac. Facet joints are enlarged. Neural canals do remain patent. Other significant findings: None. IMPRESSION: Similar multilevel disc degeneration and facet arthropathy from prior MR lumbar spine 04/22/2023 as de scribed above. No definitive disc herniation. [facility], , 09/08/2024 4:04 PM
== END | disposition home or self-care (01) ==
LOC: RADMRIMAIN 14:54
PROVIDERS: ATTEND Orthopaedic Surgery
DX: M47.817 Spondylosis without myelopathy or radiculopathy, lumbosacral region (principal); M48.062 Spinal stenosis, lumbar region with neurogenic claudication; M51.26 Other intervertebral disc displacement, lumbar region; Z96.642 Presence of left artificial hip joint
CPT/HCPCS: 72148